=== PATIENT | male | born 1930 | race Caucasian/White ===

== ENCOUNTER 2017-11-15 14:47 | Outpatient (RCR) | payer MEDICARE, OTHER ==
[~2017-11-15] VITALS: Ht 165.1 cm; Wt 60.0 kg
[~2017-11-15 14:47] MED LIST: ALBUTEROL S0.4 MG/ML; ASPIRIN E.C. 8181 MG PO; ASTELIN NASAL S34 ML NS; FERRO-TIME325 MG PO; FLONASE NASAL S16 GM NS; MUCINEX1200 MG PO; NASAL 15 ML15 M1 NS; PRIL40 PO; PRILOSEC 20MG20 MG PO; SINGULAIR 110 MG/TAB PO; SINGULAIR10 MG PO; VESICARE 5MG5 MG PO; ZOCOR 10MG10 MG PO; ZOCOR 20MG20 MG PO; ZYRTEC5 MG PO
[2017-11-15 15:08] VITALS: BP 122/69; PULSE 66; TEMP 98.1
== END 2017-11-15 19:00 | disposition home or self-care (01) ==
LOC: EUO 14:47
DX: J82 Pulmonary eosinophilia, not elsewhere classified (principal)

== ENCOUNTER 2017-12-12 14:37 | Outpatient (CLI) | payer MEDICARE, OTHER ==
[~2017-12-12] VITALS: Ht 165.1 cm; Wt 61.7 kg
[2017-12-12 15:04] VITALS: BP 130/67; PULSE 65; TEMP 98.2
== END 2017-12-12 15:28 | disposition home or self-care (01) ==
LOC: EUO 14:37 → EDSTATUS 15:00 → EUO 15:00
DX: J82 Pulmonary eosinophilia, not elsewhere classified (principal); Z79.899 Other long term (current) drug therapy
CPT/HCPCS: C9466

== ENCOUNTER 2018-01-09 13:06 | Outpatient (CLI) | payer MEDICARE, OTHER ==
[~2018-01-09] VITALS: Ht 165.1 cm; Wt 62.0 kg
[2018-01-09 13:22] VITALS: BP 134/64; PULSE 67; TEMP 98.1
== END 2018-01-09 13:41 | disposition home or self-care (01) ==
LOC: EUO 13:06
DX: J82 Pulmonary eosinophilia, not elsewhere classified (principal); Z79.899 Other long term (current) drug therapy
CPT/HCPCS: C9466

== ENCOUNTER 2018-03-06 13:05 | Outpatient (RCR) | payer MEDICARE, OTHER ==
[~2018-03-06] VITALS: Ht 165.1 cm; Wt 61.7 kg
[2018-03-06 13:19] VITALS: BP 140/63; PULSE 63; TEMP 97.9
== END 2018-03-07 15:21 | disposition home or self-care (01) ==
LOC: EUO 13:05
DX: J82 Pulmonary eosinophilia, not elsewhere classified (principal)
CPT/HCPCS: C9466

== ENCOUNTER 2018-05-01 12:56 | Outpatient (CLI) | payer MEDICARE, OTHER ==
[~2018-05-01] VITALS: Ht 165.1 cm; Wt 61.4 kg
[2018-05-01 13:14] VITALS: BP 146/78; PULSE 56; TEMP 98
== END 2018-05-01 13:45 | disposition home or self-care (01) ==
LOC: EUO 12:56
DX: J82 Pulmonary eosinophilia, not elsewhere classified (principal); Z79.899 Other long term (current) drug therapy
CPT/HCPCS: J0517

== ENCOUNTER → 2019-12-21 | Outpatient (CLI) | payer MEDICARE, OTHER | LOC: ZCOL.LAB 15:56 | DX: H66.3X2 Other chronic suppurative otitis media, left ear (principal) ==